=== PATIENT | male | born 1950 | race Caucasian/White ===

== ENCOUNTER 2023-09-19 09:21 | Outpatient (CLI) | payer MEDICARE | END 2023-09-19 09:22 | disposition home or self-care (01) | LOC: CSHMRI 09:21 | PROVIDERS: ATTEND Nurse Practitioner Family | DX: M54.2 Cervicalgia (principal); M47.24 Other spondylosis with radiculopathy, thoracic region; S22.009A Unspecified fracture of unspecified thoracic vertebra, initial encounter for closed fracture; M54.50 Low back pain, unspecified; M47.812 Spondylosis without myelopathy or radiculopathy, cervical region; M47.26 Other spondylosis with radiculopathy, lumbar region | CPT/HCPCS: 72052; 72146; 72148 ==